=== PATIENT | male | born 1985 | race African-American/Black ===

== ENCOUNTER 2019-05-28 21:19 | Emergency (ER) | payer MEDICAID, OTHER ==
[~2019-05-28] VITALS: Ht 193 cm; Wt 84.1 kg
[2019-05-28 21:35] VITALS: BP 150/49
== END 2019-05-29 00:20 | disposition left against medical advice (07) ==
LOC: ER 21:21
DX: R51 Headache (principal); Z53.21 Procedure and treatment not carried out due to patient leaving prior to being seen by health care provider
CPT/HCPCS: 70450; 71045

== ENCOUNTER 2019-07-03 10:03 | Emergency (ER) | payer MEDICAID ==
[~2019-07-03] VITALS: Ht 193 cm; Wt 81.6 kg
[2019-07-03 10:08] VITALS: BP 140/77
== END 2019-07-03 11:49 | disposition home or self-care (01) ==
LOC: ER 10:03
DX: M54.2 Cervicalgia (principal); M62.838 Other muscle spasm; R51 Headache; V43.52XA Car driver injured in collision with other type car in traffic accident, initial encounter; Y93.89 Activity, other specified; Y92.488 Other paved roadways as the place of occurrence of the external cause; Y99.8 Other external cause status
CPT/HCPCS: 72040; 72070